=== PATIENT | male | born 2000 | race Caucasian/White ===

== ENCOUNTER → 2021-11-01 00:30 | Outpatient (CLI) | payer BC, SELFPAY ==
[2021-11-01 16:39] LABS: SARS-CoV-2 RNA PCR Negative
== END ==
PROVIDERS: PCP Family Medicine; Visit Provider Physician Assistant Medical
DX: R68.89 Other general symptoms and signs (principal); Z20.822 Contact with and (suspected) exposure to COVID-19
CPT/HCPCS: C9803; U0003; U0005